=== PATIENT | male | born 1990 | race Caucasian/White ===

== ENCOUNTER 2017-06-04 04:09 | Emergency (ER) | payer SELFPAY ==
[~2017-06-04] VITALS: Ht 177.8 cm; Wt 61.2 kg
--- NOTE | 2017-06-04 04:15 | ED EAR COMPLAINT ---
History of Present Illness General Chief Complaint: Laceration Procedure Stated Complaint: BIBA, L EAR LAC Source: patient, police Exam Limitations: no limitations Vital Signs & Intake/Output Vital Signs & Intake/Output Vital Signs Date Time Temp Pulse Resp B/P B/P Pulse O2 O2 Flow FiO2 Mean Ox Delivery Rate 06/04 0419 98.2 105 18 126/81 100 Room Air Triage Nurses Notes Reviewed? yes Onset: Abrupt Duration: minute(s): Timing: single episode today Injury Environment: home Severity: mild Modifying Factors: Improves With: rest. Associated Symptoms: bleeding... self resolved. HPI: 27 yo gentleman presents in police custody with bleeding from his left ear lobe. He notes that he has a piercing in his left ear lobe. In the context of getting arrested, he suffered an abrasion around the helix. The bleeding self resolved. He notes discomfort. Past History Travel History Traveled to [place] past 21 day No Medical History Any Pertinent Medical History? see below for history Surgical History Surgical History: none Family History Hx Contributory? No Review of Systems Review of Systems Constitutional: Reports: no symptoms. EENTM: Reports: no symptoms. Respiratory: Reports: no symptoms. Cardiovascular: Reports: no symptoms. GI: Reports: no symptoms. Genitourinary: Reports: no symptoms. Musculoskeletal: Reports: no symptoms. Skin: Reports: no symptoms. Neurological/Psychological: Reports: no symptoms. Hematologic/Endocrine: Reports: no symptoms. Immunologic/Allergic: Reports: no symptoms. All Other Systems: Reviewed and Negative Physical Exam Physical Exam General Appearance: well developed/nourished, mild distress Head: atraumatic Ears: Bilateral: other (see below). Nose: normal inspection Mouth/Throat: normal mouth inspection Neck: normal inspection, supple, full range of motion Back: normal inspection Neurologic/Psych: awake, alert, anxious Comments: left ear with abrasion and dried blood around left helix. No tear through the piercing. NO sign of infection. Progress Differential Diagnoses I considered the following diagnoses in my evaluation of the patient: abrasion vs laceration vs tear Plan of Care: piercing removed without problem. no active bleeding, bacitracin applied. no need for sutures. Initial ED EKG: none Departure Departure Disposition: HOME OR SELF CARE Condition: Stable Clinical Impression Primary Impression: Abrasion Departure Forms: Customer Survey General Discharge Information
[2017-06-04 04:19] VITALS: BP 126/81
== END 2017-06-04 04:29 ==
LOC: ERH 04:09
DX: S00.412A Abrasion of left ear, initial encounter (principal); Y35.813A Legal intervention involving manhandling, suspect injured, initial encounter; Y93.9 Activity, unspecified; Y92.9 Unspecified place or not applicable
CPT/HCPCS: 99282